=== PATIENT | female | born 1935 ===

== ENCOUNTER → 2017-05-20 | Outpatient (CLI) | payer MEDICARE ==
[~2017-05-20] VITALS: Ht 164.5 cm; Wt 74.0 kg
[~2017-05-20] MED LIST: ASPI-556 PO; ATOR40TA28 PO; CALC-51 PO; FISH1CAP27 PO; LISI-662 PO; METO50 PO; RIVA15T PO
[2017-05-20 10:12] VITALS: BP 142/84
== END | disposition home or self-care (01) ==
LOC: SRCNTR 09:51
PROVIDERS: ATTEND Internal Medicine Clinical Cardiac Electrophysiology
DX: Z45.018 Encounter for adjustment and management of other part of cardiac pacemaker (principal); I10 Essential (primary) hypertension; E78.5 Hyperlipidemia, unspecified; I48.91 Unspecified atrial fibrillation
CPT/HCPCS: G0463

== ENCOUNTER → 2017-11-18 | Outpatient (CLI) | payer MEDICARE ==
[~2017-11-18] VITALS: Ht 165.1 cm; Wt 76.0 kg
[~2017-11-18] MED LIST changes: +CALC-1038 PO; -CALC-51 PO; +LEVO25TA9 PO; -LISI-662 PO; -RIVA15T PO
[2017-11-18 10:45] VITALS: BP 126/68
== END | disposition home or self-care (01) ==
LOC: SRCNTR 10:20
PROVIDERS: ATTEND Internal Medicine Clinical Cardiac Electrophysiology
DX: Z45.018 Encounter for adjustment and management of other part of cardiac pacemaker (principal)
CPT/HCPCS: 93288; G0463

== ENCOUNTER → 2017-12-23 | Outpatient (CLI) | payer MEDICARE ==
[~2017-12-23] VITALS: Ht 165.1 cm; Wt 74.0 kg
[2017-12-23 11:07] VITALS: BP 133/66
== END | disposition home or self-care (01) ==
LOC: SRCNTR 10:49
PROVIDERS: ATTEND Internal Medicine Clinical Cardiac Electrophysiology
DX: Z45.018 Encounter for adjustment and management of other part of cardiac pacemaker (principal)
CPT/HCPCS: 93288; G0463

== ENCOUNTER → 2018-06-23 | Outpatient (CLI) | payer MEDICARE ==
[~2018-06-23] VITALS: Ht 165.1 cm; Wt 69.0 kg
[2018-06-23 11:14] VITALS: BP 131/60
== END | disposition home or self-care (01) ==
LOC: SRCNTR 10:31
PROVIDERS: ATTEND Internal Medicine Clinical Cardiac Electrophysiology
DX: Z45.018 Encounter for adjustment and management of other part of cardiac pacemaker (principal); I10 Essential (primary) hypertension; E78.00 Pure hypercholesterolemia, unspecified; I48.0 Paroxysmal atrial fibrillation
CPT/HCPCS: G0463